=== PATIENT | male | born 1955 | race African-American/Black ===

== ENCOUNTER 2018-10-19 18:48 | Inpatient (IN) ==
[2018-10-19] MEDS ORDERED: NOREPINEPHRINE 4 MG/4 ML VIAL IV ONE (20:47)
[2018-10-19 21:11] LABS: Basophils # 0.1 10*3/uL (0.0-0.2); Basophils % 0.4 % (0.0-0.8); Eosinophils % 0.1 % (0.00-10.9); Hematocrit 26.7 VOL% (42.0-52.0); Hemoglobin 7.9 GM/DL (14.0-18.0); Immature Granulocytes % 20.8 %; Immature Granulocytes Absolute 4.89 #; Lymphocytes # 2.9 10*3/uL (1.4-4.0); Lymphocytes % 12.1 % (21.2-54.2); Mean Corpuscular HGB Conc 29.6 GM/DL (32-36); Mean Corpuscular Hemoglobin 24 PG (27-34); Mean Corpuscular Volume 82.4 FL (87-102); Mean Platelet Volume 9.4 FL (9.6-12.0); Monocytes # 0.3 10*3/uL (0.11-0.8); Monocytes % 1.4 % (1.7-12.7); NRBC # 0.05 10*3/uL; Neutrophils # 15.3 10*3/uL (1.4-7.4); Neutrophils % 65.2 % (38.7-73.9); Platelet Count 158 T/CUMM (130-400); Red Blood Count 3.24 MC/CUMM (3.8-5.5); White Blood Count 23.5 T/CUMM (4-12)
[2018-10-19 21:13] LABS: Pt O2 Delivery Device Ventilator
[2018-10-19 21:14] LABS: ABG Base Excess -4.8 MMOL/L (-2.5-2.5); ABG HCO3 20.4 MMOL/L (20-26); ABG Oxygen Saturation 98.9 % (95-100); ABG PCO2 50.1 MM HG (35-48); ABG PH 7.257 (7.35-7.45)
[2018-10-19] MEDS: NOREPINEPHRINE 8 MG in SODIUM CHLORIDE 0.9% 242 ML IV SCH (21:18)
[2018-10-19] MEDS ORDERED: ALBUTEROL 2.5 MG/3 ML NEB RESP TX PRN (21:28)
[2018-10-19] MEDS ORDERED: PANTOPRAZOLE 40 MG VIAL IV SCH (21:30)
[2018-10-19] MEDS ORDERED: PROPOFOL 1,000 MG/100 ML BOTTLE IV SCH (21:30)
[2018-10-19] MEDS ORDERED: SODIUM CHLORIDE 0.9% 1,000 ML IV PRN (21:36)
[2018-10-19 21:54] LABS: Calcium 7.7 MG/DL (8.5-10.1); Osmolality,Calculated 289.8 MOS/KG (273-304); Potassium 5.1 MMOL/L (3.5-5.1)
[2018-10-19 21:56] LABS: Troponin I 3.46 NG/ML (0.00-0.045)
[2018-10-19 22:20] LABS: Anisocytosis Slight; Band Neutrophils 9 % (0-10); Lymphocytes 14 % (20-55); Metamyelocytes 7 %; Microcytosis Slight; Myelocytes 3 %; Nucleated Red Blood Cells 1 (0-5); Segmented Neutrophils 62 % (50-85); Smudge Cells Few; Total Cells Counted 100
[2018-10-19 22:21] LABS: Ovalocytes Slight; Platelet Estimate Adequate
[2018-10-19] MEDS: PIPERACILLIN/TAZOBACTAM 3,375 MG in SODIUM CHLORIDE 0.9% 100 ML IV SCH (22:21)
[2018-10-19] MEDS: DOPamine 800 MG/250 ML PREMIX IV SCH (22:50)
[2018-10-19] MEDS: SODIUM CHLORIDE 0.9% 1,000 ML IV SCH (22:51)
[2018-10-19] MEDS: AMIODARONE INJ 450 MG in DEXTROSE 5% 241 ML IV SCH (22:51)
[2018-10-19] MEDS ORDERED: LACTATED RINGERS 1,000 ML IV ONE (22:57)
[2018-10-19] MEDS ORDERED: ENOXAPARIN 80 MG/0.8 ML SYRINGE SUBCUT SCH (23:00)
[2018-10-19] MEDS ORDERED: ENOXAPARIN 40 MG/0.4 ML SYRINGE SUBCUT SCH (23:00)
[2018-10-19 23:23] LABS: Apearance,Urine Slightly Hazy (Clear); Bilirubin,Urine Negative (Negative); Blood, Urine Large mg/dL (Negative); Glucose,Urine (UA) 150 mg/dL (Negative); Ketones,Urine Negative (Negative); Mucus,Urine Occasional /LPF (Occasional); Nitrite,Urine Negative (Negative); Protein,Urine 30 MG/DL; RBC,Urine 5 /HPF (0-4); Squamous Epithelial Cell,Urine Occasional /HPF (0-10); Urine Color Yellow (Yellow); Urine Urobilinogen < 2.0 EU/DL (0.2-1.0); WBC,Urine 9 /HPF (0-6)
[2018-10-19] MEDS ORDERED: LEVOFLOXACIN INJ 750 MG in PREMIX 1 EACH IV SCH (23:30)
[2018-10-20 00:03] LABS: Pt O2 Delivery Device Ventilator
[2018-10-20 00:04] LABS: ABG Base Excess -2.7 MMOL/L (-2.5-2.5); ABG HCO3 22.1 MMOL/L (20-26); ABG Oxygen Saturation 99.3 % (95-100); ABG PCO2 40.9 MM HG (35-48); ABG PH 7.351 (7.35-7.45)
[2018-10-20] MEDS: AMIODARONE INJ 450 MG in DEXTROSE 5% 241 ML IV SCH (01:03)
[2018-10-20] MEDS: SODIUM CHLORIDE 0.9% 1,000 ML IV SCH ×4 (01:09→08:41)
[2018-10-20] MEDS: NOREPINEPHRINE 8 MG in SODIUM CHLORIDE 0.9% 242 ML IV SCH ×3 (01:11→10:02)
[2018-10-20] MEDS ORDERED: DEXTROSE 50% 25 GM/50 ML SYRINGE IV PRN ×2 (01:18→12:33)
[2018-10-20] MEDS ORDERED: VANCOMYCIN INJ 1,250 MG in SODIUM CHLORIDE 0.9% 250 ML IV SCH (02:00)
[2018-10-20] MEDS ORDERED: FUROSEMIDE 40 MG/4 ML VIAL IV ONE (03:15)
[2018-10-20 03:58] LABS: ABG Base Excess -3.8 MMOL/L (-2.5-2.5); ABG HCO3 21.3 MMOL/L (20-26); ABG Oxygen Saturation 99.1 % (95-100); ABG PCO2 38.8 MM HG (35-48); ABG TCO2 19.2 MMOL/L (23-27); Pt O2 Delivery Device Ventilator
[2018-10-20 05:00] LABS: Basophils # 0.1 10*3/uL (0.0-0.2); Basophils % 0.7 % (0.0-0.8); Eosinophils % 0.1 % (0.00-10.9); Hematocrit 35.3 VOL% (42.0-52.0); Immature Granulocytes % 7.1 %; Immature Granulocytes Absolute 1.26 #; Lymphocytes # 3.9 10*3/uL (1.4-4.0); Lymphocytes % 22.1 % (21.2-54.2); Mean Corpuscular HGB Conc 31.2 GM/DL (32-36); Mean Corpuscular Hemoglobin 26 PG (27-34); Mean Corpuscular Volume 82.1 FL (87-102); Mean Platelet Volume 9.3 FL (9.6-12.0); Monocytes # 0.6 10*3/uL (0.11-0.8); Monocytes % 3.2 % (1.7-12.7); NRBC # 0.05 10*3/uL; Neutrophils # 11.9 10*3/uL (1.4-7.4); Neutrophils % 66.8 % (38.7-73.9); Platelet Count 125 T/CUMM (130-400); Red Cell Distribution Width 15.9 % (9.3-17.3); White Blood Count 17.8 T/CUMM (4-12)
[2018-10-20 05:20] LABS: Calcium 7.1 MG/DL (8.5-10.1); Potassium 5.6 MMOL/L (3.5-5.1)
[2018-10-20 05:59] LABS: Anisocytosis Slight; Band Neutrophils 25 % (0-10); Eosinophils 1 % (0-10); Lymphocytes 37 % (20-55); Platelet Estimate Adequate; Segmented Neutrophils 33 % (50-85); Total Cells Counted 100
[2018-10-20 06:00] LABS: Poikilocytosis Slight; Smudge Cells 1+
[2018-10-20] MEDS ORDERED: SODIUM CHLORIDE 0.9% 1,000 ML IV ONE ×2 (06:10→13:18)
[2018-10-20] MEDS ORDERED: SODIUM BICARBONATE 50 MEQ/50 ML SYRINGE IV ONE ×2 (06:11→11:51)
[2018-10-20] MEDS ORDERED: INSULIN REGULAR 100 UNIT/ML IV ONE (06:12)
[2018-10-20] MEDS ORDERED: DEXTROSE 50% 25 GM/50 ML SYRINGE IV ONE (06:12)
[2018-10-20] MEDS ORDERED: ASPIRIN 325 MG TABLET PO ONE (06:15)
[2018-10-20] MEDS: PIPERACILLIN/TAZOBACTAM 3,375 MG in SODIUM CHLORIDE 0.9% 100 ML IV SCH ×2 (06:35→15:17)
[2018-10-20] MEDS ORDERED: AMIODARONE 200 MG TABLET PO ONE (08:02)
[2018-10-20] MEDS ORDERED: HEPARIN/NACL 0.9% 2 UNITS/ML 500 ML IV ONE ×2 (08:19→10:08)
[2018-10-20] MEDS ORDERED: ENOXAPARIN 40 MG/0.4 ML SYRINGE SUBCUT SCH (09:00)
[2018-10-20] MEDS ORDERED: ATORVASTATIN 80 MG TABLET PO SCH (09:00)
[2018-10-20] MEDS ORDERED: ASPIRIN CHEW 81 MG TABLET PO SCH (09:00)
[2018-10-20] MEDS ORDERED: NOREPINEPHRINE 16 MG in SODIUM CHLORIDE 0.9% 234 ML IV PRN (09:32)
[2018-10-20] MEDS: PHENYLEPHRINE DRIP 40 MG/250 ML PREMIX IV PRN ×2 (10:08→13:19)
[2018-10-20] MEDS ORDERED: ALBUMIN 5% 12.5 GM/250 ML VIAL IV ONE (10:25)
[2018-10-20 10:42] LABS: ABG Base Excess -6.4 MMOL/L (-2.5-2.5); ABG HCO3 18.8 MMOL/L (20-26); ABG PCO2 61.2 MM HG (35-48); ABG PO2 50.9 MM HG (80-95); ABG TCO2 21.4 MMOL/L (23-27)
[2018-10-20 10:45] LABS: ABG PH 7.181 (7.35-7.45)
[2018-10-20 10:50] LABS: Basophils # 0.1 10*3/uL (0.0-0.2); Basophils % 0.5 % (0.0-0.8); Eosinophils % 0.2 % (0.00-10.9); Hematocrit 33.2 VOL% (42.0-52.0); Hemoglobin 10.3 GM/DL (14.0-18.0); Immature Granulocytes % 6.4 %; Immature Granulocytes Absolute 1.62 #; Lymphocytes % 27.8 % (21.2-54.2); Mean Corpuscular Hemoglobin 26 PG (27-34); Mean Corpuscular Volume 82.8 FL (87-102); Mean Platelet Volume 10.6 FL (9.6-12.0); Monocytes # 1.1 10*3/uL (0.11-0.8); Monocytes % 4.4 % (1.7-12.7); NRBC # 0.18 10*3/uL; Neutrophils # 15.3 10*3/uL (1.4-7.4); Neutrophils % 60.7 % (38.7-73.9); Platelet Count 128 T/CUMM (130-400); Red Blood Count 4.01 MC/CUMM (3.8-5.5); Red Cell Distribution Width 15.8 % (9.3-17.3); White Blood Count 25.2 T/CUMM (4-12)
[2018-10-20 11:05] LABS: Alanine Aminotransferase 494 U/L (16-61); Albumin 1.4 G/DL (3.4-5.0); Alkaline Phosphatase 128 U/L (45-117); Aspartate Amino Transferase 751 U/L (0-37); Blood Urea Nitrogen 22 MG/DL (7-18); Calcium 6.5 MG/DL (8.5-10.1); Glucose 115 MG/DL (74-106); Osmolality,Calculated 295.4 MOS/KG (273-304); Potassium 5.9 MMOL/L (3.5-5.1); Sodium 147 MMOL/L (136-145); Total Protein 4.9 G/DL (6.4-8.3)
[2018-10-20 11:49] LABS: Anisocytosis 1+; Band Neutrophils 34 % (0-10); Lymphocytes 35 % (20-55); Platelet Estimate Adequate; Segmented Neutrophils 29 % (50-85); Total Cells Counted 100
[2018-10-20 11:50] LABS: Amylase 785 U/L (25-115); Lipase < 50.0 U/L (73-393); Macrocytosis Slight
[2018-10-20] MEDS ORDERED: SODIUM POLYSTYRENE SULFATE 15 GM/60 ML BOTTLE PO ONE (11:51)
[2018-10-20] MEDS ORDERED: GLUCAGON 1 MG VIAL IM PRN (12:33)
[2018-10-20] MEDS: DOPamine 800 MG/250 ML PREMIX IV SCH (13:10)
[2018-10-20 13:16] LABS: ABG Base Excess -0.5 MMOL/L (-2.5-2.5); ABG Oxygen Saturation 98.7 % (95-100); ABG PCO2 42.2 MM HG (35-48); ABG PH 7.377 (7.35-7.45); ABG TCO2 22.2 MMOL/L (23-27)
[2018-10-20 14:30] VITALS: BP 56/36
[2018-10-20] MEDS ORDERED: INSULIN LISPRO 100 UNIT/ML SUBCUT SCH (18:00)
[2018-10-20] MEDS ORDERED: AMIODARONE 200 MG TABLET PO SCH (21:00)
== END 2018-10-20 14:41 | disposition expired | DRG 871 ==
LOC: SUATTDRO 20:27 → N.ICU 20:27
PROVIDERS: ADMIT Internal Medicine; ATTEND Internal Medicine